=== PATIENT | male | born 1945 | race Caucasian/White ===

== ENCOUNTER 2023-07-20 03:48 | Inpatient (IN) | payer OTHER, SELFPAY ==
[2023-07-19 21:00] VITALS: BP 147/78; BMI 23.9
[2023-07-19 21:33] LABS: % Basophils 0.3 % (0-2); % Eosinophils 0.5 % (0-6); % Immature Granulocytes 0.4 % (0-0.5); % Monocytes 5.8 % (1.7-9.3); Absolute Eosinophils 0.1 10^3/uL (0-0.7); Absolute Lymphocytes 2.4 10^3/uL (1.2-3.4); Absolute Monocytes 0.6 10^3/uL (0.1-0.6); Absolute Neutrophils 7.8 10^3/uL (1.4-6.5); Hematocrit 40.8 % (39.0-52.0); Hemoglobin 14.5 g/dL (13.0-18.0); Mean Corp Hgb Conc. 35.5 g/dL (33.0-37.0); Mean Corpuscular Hgb 29.8 pg (27.0-31.0); Mean Corpuscular Volume 83.8 fL (80.0-94.0); Mean Platelet Volume 9.2 fL (7.4-10.4); Nucleated Red Blood Cells % 0 % (-); Platelet Count 240 10^3/uL (130-400); Red Blood Cell Count 4.87 10^6/uL (4.70-6.10); Red Cell Dist. Width 13.1 % (11.5-14.5); White Blood Cell Count 10.9 10^3/uL (4.8-10.8)
[2023-07-19 21:34] LABS: Urine Albumin Trace (Neg - Trace); Urine Bilirubin Negative (Negative); Urine Character Clear (Clear); Urine Color Yellow; Urine Glucose Negative (Negative); Urine Ketone 1+ (Negative); Urine Leukocyte Trace (Negative); Urine Nitrite Negative (Negative); Urine Occult Blood Negative (Negative); Urine Urobilinogen Negative (Neg - 1+)
[2023-07-19 21:41] LABS: Urine Mucus Few
[2023-07-19 21:42] LABS: Urine Red Blood Cell None Seen /HPF (0-2)
[2023-07-19 21:51] LABS: ALT (SGPT) 87 U/L (0-50); AST (SGOT) 35 U/L (17-59); Albumin 4.2 g/dl (3.5-5.0); Alkaline Phosphatase 96 U/L (38-126); Blood Urea Nitrogen 27 mg/dl (9-20); Calcium 9.4 mg/dl (8.4-10.2); Carbon Dioxide 25 mmol/L (22-30); Chloride 105 mmol/L (98-107); Estimated Creatinine Clearance 52 ml/min; Glucose 152 mg/dl (70-99); Lipase 207 U/L (23-300); Potassium 4.2 mmol/L (3.5-5.1); Sodium 136 mmol/L (135-145); Total Bilirubin 1.2 mg/dl (0.2-1.3); Total Protein 6.8 g/dl (6.3-8.2); eGFR > 60.00
--- NOTE | 2023-07-19 23:16 | ED.GENMED ---
History of Present Illness
General
Chief Complaint: Abdominal Pain
Source: patient and family
Time Seen by Provider: 07/19/23 23:03
Travel History
Have you had any contact with someone who has COVID-19?: No
Do you have any symptoms of coronavirus? Fever > 100 degrees, chills, cough, shortness of breath, sore throat, loss of taste or smell, muscle aches, or headache?: No
History of Present Illness
History of Present Illness:
This patient is a 77-year-old male who says he was feeling perfectly well until approximately 4:30 PM tonight when he developed upper abdominal pain associated with repeated episodes of nausea and nonbloody vomiting. He states that he last vomited
a few hours ago and he describes it as 'dry heaves' without the ground or blood. The pain is isolated to across the upper abdomen without exacerbating or relieving factors, no radiation, no associated chest pain, back pain, neck pain, headache,
dizziness. He denies urinary symptoms. He states that he had 3 formed nonbloody bowel movements today. He denies sick contacts or recent travel.
Past History
Past History
ED Past Medical History: Arrthythmia, Hypercholesterolemia and Psychiatric
ED Past Surgical History: Cardiac and Other (Hernia)
Social History
Tobacco: Non-smoker
Alcohol: Occasional
Drug: None
Personal: Other (Engaged)
Phy Exam
Physical Exam
Physical Exam:
GENERAL: Alert , in no apparent distress, smiling, well-appearing, laying in bed with fianc�
EYE: pupils equal and reactive
NECK: Supple, no significant adenopathy.
ENT: o/p clr, mm slightly dry
CARDIAC: Regular rate and rhythm .
LUNGS: Clear breath sounds bilaterally, no acute respiratory distress, no wheezes/rales/rhonchi
ABDOMEN: Soft, mild upper abdominal tenderness, no r/g, no cvat
NEUROLOGICAL: Alert and oriented, no focal neuro deficits
SKIN: Warm and dry, skin intact.
MUSCULOSKELETAL: No edema, well perfused.
PSYCH: Normal and appropriate interaction.
Course
Orders/Labs/Results
Orders:
Orders
07/19/23 21:06
EKG [Electrocardiogram (*1)] Urgent
Reason for Study: Abdominal Pain
EKG- Treatment ONCE
07/19/23 21:25
Complete Blood Count/With Diff Urgent
Comprehensive Metabolic Panel Urgent
Lipase Urgent
Urinalysis Reflex To Culture Urgent
Date Specimen was Collected: 07/19/23
Time Specimen was Collected: 21:05
Urine Microscopic Reflex Cult Urgent
07/19/23 23:16
0.9% Sodium Chloride 500 ml [Nss] 500 ml IV BOLUS
Morphine Sulfate 4 mg IV NOW STA
07/19/23 23:29
Ondansetron Injectable [Zofran] 4 mg .ROUTE .STK-MED ONE
07/19/23 23:30
Ondansetron Injectable [Zofran] 4 mg IV NOW STA
07/20/23 00:33
Morphine Sulfate 4 mg .ROUTE .STK-MED ONE
07/20/23 00:35
Morphine Sulfate 4 mg IV NOW STA
07/20/23 00:36
CT Abd/Pel (IV only)-DH only Urgent
Comment:
Reason For Exam: upper abd pain
07/20/23 01:22
Ketorolac [Toradol] 15 mg IV NOW STA
Abnormal Lab Results
07/19/23
21:25
WBC 10.9 H 10^3/uL
(4.8-10.8)
Absolute Neuts (auto) 7.8 H 10^3/uL
(1.4-6.5)
BUN 27 H mg/dl
(9-20)
Glucose 152 H mg/dl
(70-99)
ALT 87 H U/L
(0-50)
Urine Ketones 1+ A
(Negative)
Leukocyte Esterase Rfl Trace A
(Negative)
07/19/23 21:25
07/19/23 21:25
Vital Signs
Initial and Last Documented VS:
Initial Vital Signs
Temp Pulse Resp BP Pulse Ox
98.7 F 69 16 147/78 10
07/19/23 21:00 07/19/23 21:00 07/19/23 21:00 07/19/23 21:00 07/19/23 21:00
Last Documented Vital Signs
Temp Pulse Resp BP Pulse Ox
98.7 F 72 16 128/69 95
07/19/23 21:00 07/20/23 01:51 07/20/23 01:51 07/20/23 01:51 07/20/23 01:51
*Critical Care Note
Total Time (30-74mins, 75-104mins- exclusive of procedures): Not Applicable
Update Note
Update Note:
Patient presents to the Emergency Department with ____abdominal pain nausea vomiting
Number and Complexity of Problems Addressed at the Encounter
� Chronic conditions affecting care:
� Acute Exacerbation and/or Progression of Chronic Illness:
� Differential Diagnosis includes: But not limited to cholelithiasis, cholecystitis, pancreatitis, hepatitis, STEMI, etc. etc.
Amount and/or Complexity of Data to be Reviewed and Analyzed
� I performed an independent evaluation of and my interpretation is:
EKG: Read by me, normal sinus rhythm, no acute ischemia, PVCs noted
CT: 5 mm stone in the cystic duct with gallbladder inflammation concerning for acute cholecystitis, left ureteral dilation with decreased ureteral filling compared to the right, prostate enlargement with mild bladder wall
thickening noted, urology referral recommended for cystoscopy to assess for subtle bladder lesion causing left ureteral obstruction, no CT signs of pancreatitis, normal appendix, no free air
Xrays:
Laboratory Studies: Very minimal white blood cell count elevation, ketones noted in urine consistent with mild dehydration
Other:
� Review of other/old records reveals:
� Clinical information was obtained by an independent historian: Renata� who is bedside
� Prescriptions/Medications Considered but not given:
� Further testing considered but not performed:
Risk of Complications and/or Morbidity or Mortality of Patient Management
� Social determinants of health affecting care:
� Discussion with other providers (PCP, Hospitalists, Consultants, etc):
� Escalation of care including admission/observation vs risk of discharge considered:Pt feels better but still with pain. CT findings c/w pts continued upper abd pain/n/v. LFt's noted. Tashi dmit, iv abx,will need GI/surg c/s
in AM (not emergent, pt stable).
Pt specifically notified re:CT incidental findings and need for prompt urology f/u. He expresses understanding of this.
ED Attending Note
-
Portions of this chart may have been created with voice recognition software.� Occasional wrong word or��sound alike� substitutions may have occurred due to the inherent limitations of voice recognition software.
Discharge Plan
Departure
Patient Disposition: Admit
Date of Disposition: 07/20/23
Time of Disposition: 02:22
Presentation/result/management discussed w/ accepting MD/DO: Hospitalist
Condition: Good
Discharge Problem:
Acute cholecystitis
Referrals:
Pk Ramirez MD [Family Provider] -
Interventions
Interventions:
*Risk Screen - Suicide Last Done: 07/19/23 21:00
*General Assessment Last Done: 07/19/23 22:58
*Neglect/Abuse Screening Last Done: 07/19/23 21:00
ED- Fall Risk Assessment Last Done: 07/19/23 21:00
*ED COVID-19 Vaccine History Last Done: 07/19/23 22:58
BJ-Fkgpwe-Dhgrytzlvf Assessment Last Done: 07/19/23 23:30
Discharge Date and Time
Print Language: JAMAICAN
[2023-07-19] MEDS: NSS 500 IV (23:27)
[2023-07-19] MEDS: MORPHINE SULFATE 4 MG IV (23:27)
[2023-07-19] MEDS: ZOFRAN 4 MG IV (23:30)
[2023-07-20] MEDS: MORPHINE SULFATE 4 MG IV (00:35)
[2023-07-20] MEDS: TORADOL 15 MG IV (01:26)
[2023-07-20 01:47] VITALS: BP 128/69
[2023-07-20 01:51] VITALS: BP 128/69
[2023-07-20] MEDS: ZOSYN 50 IV (03:04)
[2023-07-20 03:40] VITALS: BP 121/70
--- NOTE | 2023-07-20 03:42 | HPS.HSE ---
Family Physician
-
Family Physician: Pk Ramirez
Chief Complaint
-
Abd Pain, N/V
History of Present Illness
Patient is a 77y M with PMH significant for dyslipidemia and anxiety who presents to ED complaining of abdominal pain and N/V. Patient states that his symptoms started suddenly today around 4:30 PM. He had severe, mid-abdominal pain accompanied
by N/V. He estimates that he had 'about 50' episodes of emesis - including multiple episodes of retching / 'dry heaves'. His symptoms persisted x several hours and he presented to the ED for further evaluation.
Patient notes that he has had less severe abdominal pain several times in the past 4-6 weeks. He notes 3-4 occasions - always in the middle of the night - when he would wake with abdominal pain that lasted for a few hours and then resolved. He did
not seek medial attention for these episodes. He had no associated N/V, fevers or other symptoms.
Medical History
Past Medical History
Past Medical History: Reports Other
Additional Past Medical History:
Anxiety / Depression
Dyslipidemia
Paroxysmal Atrial Fibrillation
Past Surgical History: Reports Other
Additional Past Surgical History:
PVI Ablation
Hernia Repair
Social History
Tobacco: Non-smoker
Alcohol: Occasional (Very Rare)
Drug: None
Family History
Family History: Not pertinent
Allergies / Home Medications
Allergies reflects when Allergies were last updated in [facility].
Home Medications with original date entered in [facility]
Allergy/Medication List:
Allergies
Allergy/AdvReac Type Severity Reaction Status Date / Time
Penicillins Allergy Unknown Verified 07/19/23 21:04
Home Medications
paroxetine HCl 10 mg tablet (Paxil) 10 mg PO DAILY 07/20/23
simvastatin 20 mg tablet 20 mg PO DAILY 07/20/23
Review of Systems
-
History Source: Patient
A 12 point ROS was completed and negative except as noted: Yes
Constitutional: Denies Fever or Chills
Respiratory: Denies Cough or Trouble Breathing
Cardiac: Denies Chest Pain or Palpitations
Abdomen/GI: Reports Abdominal Pain, Nausea and Vomiting; Denies Diarrhea, Constipated, Bloody Stools or Black Stools
: Denies Dysuria, Frequency, Flank Pain, Incontinence, Urgency or Bleeding
Musculoskeletal: Denies Joint Pain or Edema
Neurological: Denies Dizzy or Headache
Psych: Denies Depression or Anxiety
Physical Exam
Vital Signs
Vital Signs
Temp Pulse Resp BP Pulse Ox
98.7 F 72 16 128/69 95
07/19/23 21:00 07/20/23 01:51 07/20/23 01:51 07/20/23 01:51 07/20/23 01:51
Physical Exam
General: Other (77y M in no acute distress.)
HEENT: Moist mucous membranes and PERRLA
Respiratory: Clear; No Wheezes, Rales or Rhonchi
Cardiac: S1/S2 and Regular Rhythm (with ectopy); No Murmur
GI: Soft, Non Distended, Normal Bowel Sounds and Other (Mild epigastric tenderness. No rebound / guarding.)
Musculoskeletal: No Clubbing, No Cyanosis and No Edema
Neuro: AO x 3
Laboratory Results
-
07/19/23 21:25
07/19/23 21:25
Laboratory Results
Total Bilirubin 1.2 mg/dl (0.2-1.3) 07/19/23 21:25
AST 35 U/L (17-59) 07/19/23:
ALT 87 U/L (0-50) H 07/19/23 21:25
Alkaline Phosphatase 96 U/L (38-126) 07/19/23 21:
Lipase 207 U/L (23-300) 07/19/23 21:
Impression/Plan
-
A/P: Patient is a 77y M with PMH significant for dyslipidemia and anxiety who presents to ED complaining of abdominal pain and N/V.
Acute Calculous Cholecystitis
Cystic Duct Stone
- Admit for further evaluation and treatment.
- Supportive care including NPO, IVFs, pain control and antiemetics.
- IV abx with levofloxacin and metronidazole for now given PCN allergy (even though remote).
- Surgery evaluation for eventual cholecystectomy.
Left Ureteral Dilation
- CT reports also incidentally notes dilated L ureter without evident obstruction, stricture, etc.
- No urinary symptoms / complaints.
- Renal function / labs / lytes are normal.
- Will ask Urology to evaluate for additional recommendations.
Anxiety / Depression
- Stable. Continue Paxil.
DVT Prophylaxis: Lovenox
Code Status: Full
[2023-07-20] MEDS: LEVAQUIN 100 IV (06:18)
[2023-07-20] MEDS: FLAGYL 500 MG 100 IV ×3 (06:18→20:08)
[2023-07-20] MEDS: LR 1000 IV ×2 (07:43→21:59)
[2023-07-20 07:57] LABS: Hemoglobin 12.6 g/dL (13.0-18.0); Mean Corp Hgb Conc. 34.1 g/dL (33.0-37.0); Mean Corpuscular Hgb 29.6 pg (27.0-31.0); Mean Corpuscular Volume 87.1 fL (80.0-94.0); Mean Platelet Volume 9.6 fL (7.4-10.4); Platelet Count 181 10^3/uL (130-400); Red Blood Cell Count 4.25 10^6/uL (4.70-6.10); Red Cell Dist. Width 13.2 % (11.5-14.5); White Blood Cell Count 10.3 10^3/uL (4.8-10.8)
[2023-07-20 08:09] LABS: ALT (SGPT) 183 U/L (0-50); AST (SGOT) 205 U/L (17-59); Albumin 3.2 g/dl (3.5-5.0); Alkaline Phosphatase 76 U/L (38-126); Blood Urea Nitrogen 23 mg/dl (9-20); Calcium 8.7 mg/dl (8.4-10.2); Carbon Dioxide 28 mmol/L (22-30); Chloride 106 mmol/L (98-107); Direct Bilirubin 0.2 mg/dl (0.0-0.4); Estimated Creatinine Clearance 63 ml/min; Glucose 141 mg/dl (70-99); Potassium 4.3 mmol/L (3.5-5.1); Sodium 138 mmol/L (135-145); Total Bilirubin 2.1 mg/dl (0.2-1.3); Total Protein 5.5 g/dl (6.3-8.2); eGFR > 60.00
--- NOTE | 2023-07-20 09:18 | W.PN.HOSP.TC ---
Today's Communication/Plan
-
IV AB
Surgical eval
Assessment / Plan
Assessment / Plan
77-year-old male with history of epigastric discomfort a few times in the past few months comes in because of more pain and nausea and vomiting
Examination pain-free now
Cardiovascular system S1-S2 appreciated
Chest clear to auscultation
Abdomen soft and nontender
No pedal edema
CT-contracted gallbladder with stones 0.5 cm cystic duct. Cannot exclude gallbladder wall thickening pronation. No CBD dilatation mentioned. Small nonobstructing left renal calculi. Mild left ureteral dilatation
EKG sinus rhythm with PVCs right bundle branch block
#Acute Calculous Cholecystitis
Cystic Duct Stone
- Supportive care including NPO, IVFs, pain control and antiemetics.
- IV abx with levofloxacin and metronidazole for now given PCN allergy (even though remote).
- Surgery evaluation for eventual cholecystectomy.
#Left Ureteral Dilation
- CT reports also incidentally notes dilated L ureter without evident obstruction, stricture
- No urinary symptoms / complaints.
- Renal function / labs / electrolytes are normal.
- Urinalysis not consistent with UTI
- Will ask Urology to evaluate for additional recommendations.
# History of atrial fibrillation with history of ablation in the past not on any anticoagulation follows up with Dr. Gavin Martin at [place]
#Anxiety / Depression
- Stable. Continue Paxil.
# Hyperlipidemia-hold simvastatin given elevated LFTs
#DVT Prophylaxis: Lovenox
#Code Status: Full
Anticipated Discharge: 24 - 48 hours
Subjective/Interval History
-
Date of Service: July 20, 2023
Objective Data
-
Labs:
Laboratory Results
07/19/23 07/20/23
21:25 07:42
WBC 10.9 H 10.3
Hgb 14.5 12.6 L
Hct 40.8 37.0 L
Plt Count 240 181 D
Sodium 136 138
Potassium 4.2 4.3
Chloride 105 106
Carbon Dioxide 25 28
BUN 27 H 23 H
Creatinine 1.1 0.9
Glucose 152 H 141 H
Calcium 9.4 8.7
Total Bilirubin 1.2 2.1 H D
AST 35 205 H
ALT 87 H 183 H
Alkaline Phosphatase 96 76
Vital Signs:
Vital Signs
Temp Pulse Resp BP Pulse Ox
98.7 F 60 16 121/70 98
07/19/23 21:00 07/20/23 03:40 07/20/23 03:40 07/20/23 03:40 07/20/23 03:42
[2023-07-20] MEDS: PROTONIX IV 40 MG IV (09:20)
[2023-07-20] MEDS: PAXIL 10 MG PO (09:20)
[2023-07-20] MEDS: NSS (PRESERVATIVE FREE) 10 ML IV (09:21)
--- NOTE | 2023-07-20 12:16 | CON.GS ---
Consultation
-
Date/Time Consultation Requested: 07/19/22 0353
Requesting Provider: Ridge
Reason for Consultation: Acute Cholecystitis
Medical History
-
Chief Complaint: Abdominal pain
History of Present Illness:
This is a 77 yo male with a history of PAF s/p ablation (not on AC), HLD and right inguinal hernia repair who presented overnight with upper abdominal pain starting in the epigastric area around the right side into his back with nausea and multiple
episodes of vomiting. He notes this is his 3rd episode like this usually an hour or 2 after eating but as it was much worse than prior episodes, he presented for evaluation. He is currently pain free and without tenderness. He denies active nausea.
Past Medical History
Past Medical History: Arrhythmias (PAF), Hypercholesterolemia and Psychiatric (anxiety/depression)
Past Surgical History: Cardiac (PVI ablation) and Hernia Repair (right inguinal 2020 at [place])
Social History
Tobacco: Non-Smoker
Alcohol: None
Family History
Family History: Reviewed & Not Pertinent
Allergies / Home Medications
Allergy/AdvReac Type Severity Reaction Status Date / Time
Penicillins Allergy Unknown Verified 07/19/23 21:04
�Medication �Instructions �Recorded �Confirmed �Type
paroxetine HCl 10 mg tablet (Paxil) 10 mg PO DAILY 07/20/23 07/20/23 History
simvastatin 20 mg tablet 20 mg PO DAILY 07/20/23 07/20/23 History
Review of Systems
-
History Source: Patient
All other systems: Negative unless noted
A 10 point review of systems was completed, and was negative except as per HPI.
Physical Exam
Vital Signs
Temp Pulse Resp BP Pulse Ox
98.7 F 60 16 121/70 98
07/19/23 21:00 07/20/23 03:40 07/20/23 03:40 07/20/23 03:40 07/20/23 03:42
07/19/23 07/20/2307/20/24
06:59 06:59 06:59
Actual Weight 68.039 kg
Body Mass Index (BMI) 23.9
Lab Results
07/20/23 07:42
07/20/23 07:42
WBC 10.3 10^3/uL (4.8-10.8) 07/20/23 07:42
Hgb 12.6 g/dL (13.0-18.0) L 07/20/23 07:42
Hct 37.0 % (39.0-52.0) L 07/20/23 07:42
Plt Count 181 10^3/uL (130-400) D 07/20/23 07:42
Abs Immat Gran (auto) 0.0 10^3/uL (0-0.05) 07/19/23 21:25
Neutrophils % 71.0 % (42.2-75.2) 07/19/23 21:25
Physical Exam
General: Well Developed, Well Nourished and No Apparent Distress
HEENT: Normocephalic and Moist Mucous Membranes
Respiratory: Non Labored Respirations
GI: Soft, Non Tender and Non Distended
Skin: Warm
Neuro: Awake, Alert and AO x 3
Psych: Calm
Data Reviewed
-
CT Scan: Image Personally Visualized and interpreted, Report Reviewed by me, Discussed with Physician, Discussed with Nurse, Discussed with Patient and Discussed with Family
Labs: Labs Reviewed by me, Discussed with Physician, Discussed with Nurse, Discussed with Patient and Discussed with Family
Assessment / Plan
-
77 yo male PAF s/p ablation (not on AC), HLD and right inguinal hernia repair who presented overnight with epigastric abdominal pain across the front of his abdomen with nausea and intractable vomiting. He has had pain like this before but this
episode was worse. CT imaging reviewed, the gallbladder is not distended but there is a stone noted in the cystic duct. ?wall thickening and inflammation. Left hydroureter noted. AFVSS. Currently pain free without nausea. LFT's rising, no
leukocytosis. Suspect biliary colic vs acute on chronic cholecystitis.
--Trend LFT's, if bilirubin continue to rise will check MRCP
--Empiric abx
--Tentative cholecystectomy on Saturday pending patient course
--Ok for clear liquids
--Urology consult pending
--Medical management as per primary team
[2023-07-20 12:17] VITALS: BP 121/59
[2023-07-20 12:18] VITALS: BMI 24.2
--- NOTE | 2023-07-20 14:48 | W.PN.URO.CBU ---
Today's Communication / Plan
-
no gu intrvention
Assessment / Plan
-
incidetlelft hydto no obstuction ans asx bph will observe at risk fo retentionif genrla surgery will eventaually follow as otptint
Diagnosis
-
Date of Service: July 20, 2023
-
Patient Diagnosis:asx incidenta;l finding left hydrouretral dilation with no tcc no stones prompt uptake excretuion iv contrast bph
Post Op Day:
Subjective
-
asx
Objective
-
Vital Signs
Temp Pulse Resp BP Pulse Ox
97.8 F 51 16 121/59 98
07/20/23 12:17 07/20/23 12:17 07/20/23 12:17 07/20/23 12:17 07/20/23 12:17
Laboratory Results
07/20/23 07:42
07/20/23 07:42
Review of Systems
-
: No Symptoms
Physical Exam
-
General - well developed, well nourished, no acute distress
Chest - clear bilaterally
Abdomen - soft, non-tender, positive bowel sounds, no CVAT, no incisional pain or distention
Genitalia - normal
Rectal - normal
Skin - warm & dry with no rash
Neuro - AOx3, no motor deficits
Extremities - no clubbing, no cyanosis, no edema
Incision - clean, dry
Dressing - clean, dry, intact
Care Review
Data Reviewed
Discussed with: Hospitalist and Family
CT Scan: Image Pers Reviewed
[2023-07-20 15:10] VITALS: BP 118/61
[2023-07-20 16:03] VITALS: BMI 24.2
[2023-07-20 16:19] VITALS: BMI 24.2
[2023-07-20] MEDS: LOVENOX 40 MG SC (17:19)
[2023-07-20 20:00] VITALS: BMI 24.2
[2023-07-20] MEDS: LR IV (21:59)
[2023-07-20 23:31] VITALS: BP 117/58
[2023-07-21] MEDS: LEVAQUIN 100 IV (03:20)
[2023-07-21] MEDS: FLAGYL 500 MG 100 IV ×3 (04:30→20:42)
[2023-07-21 05:17] LABS: Hematocrit 39.2 % (39.0-52.0); Mean Corp Hgb Conc. 33.2 g/dL (33.0-37.0); Mean Corpuscular Volume 90.5 fL (80.0-94.0); Mean Platelet Volume 9.9 fL (7.4-10.4); Platelet Count 199 10^3/uL (130-400); Red Blood Cell Count 4.33 10^6/uL (4.70-6.10); Red Cell Dist. Width 13.3 % (11.5-14.5)
[2023-07-21 05:47] LABS: ALT (SGPT) 130 U/L (0-50); AST (SGOT) 59 U/L (17-59); Albumin 3.1 g/dl (3.5-5.0); Alkaline Phosphatase 75 U/L (38-126); Blood Urea Nitrogen 17 mg/dl (9-20); Calcium 8.8 mg/dl (8.4-10.2); Carbon Dioxide 26 mmol/L (22-30); Chloride 106 mmol/L (98-107); Estimated Creatinine Clearance 62 ml/min; Glucose 119 mg/dl (70-99); Potassium 4.4 mmol/L (3.5-5.1); Sodium 137 mmol/L (135-145); Total Bilirubin 2.2 mg/dl (0.2-1.3); Total Protein 5.5 g/dl (6.3-8.2); eGFR > 60.00
[2023-07-21] MEDS: PROTONIX IV 40 MG IV (07:31)
[2023-07-21] MEDS: PAXIL 10 MG PO (07:32)
[2023-07-21] MEDS: NSS (PRESERVATIVE FREE) 10 ML IV (07:32)
[2023-07-21 07:40] VITALS: BP 103/58
[2023-07-21] MEDS: ANTIVERT 25 MG PO ×3 (08:15→23:14)
--- NOTE | 2023-07-21 09:08 | W.PN.HOSP.TC ---
Today's Communication/Plan
-
Antivert
PT for vestibular therapy
MRI per surgery
Start clears after MRI
N.p.o. after midnight tonight for cholecystectomy tomorrow
Assessment / Plan
Assessment / Plan
77-year-old male with history of epigastric discomfort a few times in the past few months comes in because of more pain and nausea and vomiting
Examination pain-free now
Cardiovascular system S1-S2 appreciated
Chest clear to auscultation
Abdomen soft and nontender
No pedal edema
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
Exam is otherwise nonfocal
CT-contracted gallbladder with stones 0.5 cm cystic duct. Cannot exclude gallbladder wall thickening pronation. No CBD dilatation mentioned. Small nonobstructing left renal calculi. Mild left ureteral dilatation
EKG sinus rhythm with PVCs right bundle branch block
#Acute Calculous Cholecystitis
Cystic Duct Stone
- Supportive care including clears, IVFs, pain control and antiemetics.
- MRI/MRCP per surgery
- IV abx with levofloxacin and metronidazole for now given PCN allergy (even though remote).
- Cholecystectomy planned for 07/22/2023
# Acute on chronic vertigo/dizziness.
-Patient is undergoing-balance training twice a week as outpatient
-Order Antivert and physical therapy for vestibular therapy
#Left Ureteral Dilation
- CT reports also incidentally notes dilated L ureter without evident obstruction, stricture
- No urinary symptoms / complaints.
- Renal function / labs / electrolytes are normal.
- Urinalysis not consistent with UTI
- Urology is not recommending any further interventions
# History of atrial fibrillation with history of ablation in the past not on any anticoagulation follows up with Dr. Gavin Martin at [place]
#Anxiety / Depression
- Stable. Continue Paxil.
# Hyperlipidemia-hold simvastatin given elevated LFTs
#DVT Prophylaxis: Lovenox
#Code Status: Full
Discussed with nursing
Anticipated Discharge: 24 - 48 hours
Subjective/Interval History
-
Date of Service: July 21, 2023
Objective Data
-
Labs:
Laboratory Results
07/21/23
04:22
WBC 9.0
Hgb 13.0
Hct 39.2
Plt Count 199
Sodium 137
Potassium 4.4
Chloride 106
Carbon Dioxide 26
BUN 17
Creatinine 0.9
Glucose 119 H
Calcium 8.8
Total Bilirubin 2.2 H
AST 59
ALT 130 H
Alkaline Phosphatase 75
Vital Signs:
Vital Signs
Temp Pulse Resp BP Pulse Ox
98.1 F 57 16 103/58 95
07/21/23 07:40 07/21/23 07:40 07/21/23 07:40 07/21/23 07:40 07/21/23 07:40
I&O
07/20/23 07/21/23 07/22/23
06:59 06:59 06:59
Intake Total 1859
Balance 1859
--- NOTE | 2023-07-21 09:29 | W.PN.GS2 ---
Addendum entered and electronically signed by Rudy Molina MD 07/21/23 14:14:
I saw and examined the patient.
The CLOSING COORDINATOR's note was reviewed and I agree with the note.
Comment:
Seen with CLOSING COORDINATOR this am.
No pain today.
Vitals ok. WBC ok. TB 2.2.
Abdomen nontender.
Await MRCP.
Possible lap roderick tomorrow.
Original Note:
Today's Communication / Plan
-
MRCP
Assessment / Plan
-
77 yo M who presented in with mid abdominal pain, n/v, barely elevated WBC and CT with contracted/?chronically inflamed gallbladder with cystic duct stone. Bilirubin remains elevated. No further pain or n/v. AFVSS
--Check MRCP to evaluate for choledocholithiasis
--Clear liquids as tolerated
--Tentative lap roderick tomorrow pending MRCP findings
--Medical management as per primar team
Subjective Data
-
Date of Service: July 21, 2023
Patient seen and examined at bedside. Denies pain. Denies n/v.
Objective Data
-
Intake and Output
07/20/23 07/21/23 07/22/23
06:59 06:59 06:59
Intake Total 1859
Balance 1859
Intake:
Oral fluids 360 / 360
IV fluids (Total) 1200 / 1200
IV piggybacks 300 / 300
Other:
How many times incontinent 2
MODERATE amount urine
Vital Signs
Temp Pulse Resp BP Pulse Ox
98.1 F 57 16 103/58 95
07/21/23 07:40 07/21/23 07:40 07/21/23 07:40 07/21/23 07:40 07/21/23 07:40
Lab Results
07/21/23 04:22
07/21/23 04:22
Calcium 8.8 mg/dl (8.4-10.2) 07/21/23 04:22
Total Bilirubin 2.2 mg/dl (0.2-1.3) H 07/21/23 04:22
Direct Bilirubin 0.2 mg/dl (0.0-0.4) 07/20/23 07:42
AST 59 U/L (17-59) 07/21/23 04:22
ALT 130 U/L (0-50) H 07/21/23 04:22
Alkaline Phosphatase 75 U/L (38-126) 07/21/23 04:22
Total Protein 5.5 g/dl (6.3-8.2) L 07/21/23 04:22
Albumin 3.1 g/dl (3.5-5.0) L 07/21/23 04:22
Physical Exam
-
NAD
ABD soft, nt, nd
--- NOTE | 2023-07-21 09:46 | W.PN.URO.CBU ---
Today's Communication / Plan
-
no gu intervention
Assessment / Plan
-
incidetlelft hydto no obstuction ans asx bph will observe at risk fo retentionif genrla surgery will eventaually follow as otptint
Diagnosis
-
Date of Service: July 21, 2023
-
Patient Diagnosis:
Post Op Day:
Patient Diagnosis:asx incidenta;l finding left hydrouretral dilation with no tcc no stones prompt uptake excretuion iv contrast bph
Post Op Day:
Subjective
-
no gu complaints still ruq discomfort
Objective
-
Vital Signs
Temp Pulse Resp BP Pulse Ox
98.1 F 57 16 103/58 95
07/21/23 07:40 07/21/23 07:40 07/21/23 07:40 07/21/23 07:40 07/21/23 07:40
Intake and Output
07/20/23 07/21/23 07/22/23
06:59 06:59 06:59
Intake Total 1859
Balance 1859
Intake:
Oral fluids 360 / 360
IV fluids (Total) 1200 / 1200
IV piggybacks 300 / 300
Other:
How many times incontinent 2
MODERATE amount urine
Laboratory Results
07/21/23 04:22
07/21/23 04:22
Review of Systems
-
: No Symptoms
Physical Exam
-
General - well developed, well nourished, no acute distress
Chest - clear bilaterally
Abdomen - soft, non-tender, positive bowel sounds, no CVAT, no incisional pain or distention
Genitalia - normal
Rectal - normal
Skin - warm & dry with no rash
Neuro - AOx3, no motor deficits
Extremities - no clubbing, no cyanosis, no edema
Incision - clean, dry
Dressing - clean, dry, intact
Care Review
Data Reviewed
Discussed with: Hospitalist
--- NOTE | 2023-07-21 11:09 | CM ---
CM following re: discharge planning.
Reviewed pt's chart, met with pt.
Pt is a 77 year old male, admitted with primary dx of Abdominal pain. Per MD doyleative lisa vaughn tomorrow.
Pt reports he lives with zulema' in a 2SH townhouse, 3 steps to enter, has 2 supportive children. 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 No DME, VN or SNF history.
PCP: Pk Ramirez
Pharmacy: [facility]
D/C plan: home with anticipated no needs. Zulema' to transport at discharge
CM will follow with discharge plan updates as needed.
[2023-07-21] MEDS: LR 1000 IV ×2 (11:28→20:47)
[2023-07-21 13:50] VITALS: BP 112/58; PULSE 66
[2023-07-21 15:00] VITALS: BP 119/66
[2023-07-21] MEDS: LOVENOX 40 MG SC (17:21)
[2023-07-21 23:00] VITALS: BP 129/70
[2023-07-22] VITALS (13 sets, daily range): BP systolic 102–137; BP diastolic 55–76
[2023-07-22] MEDS: FLAGYL 500 MG 100 IV ×2 (03:25→20:14)
[2023-07-22] MEDS: LEVAQUIN 100 IV (04:19)
[2023-07-22 05:10] LABS: Hematocrit 35.9 % (39.0-52.0); Hemoglobin 12.5 g/dL (13.0-18.0); Mean Corp Hgb Conc. 34.8 g/dL (33.0-37.0); Mean Corpuscular Volume 86.1 fL (80.0-94.0); Mean Platelet Volume 9.7 fL (7.4-10.4); Platelet Count 189 10^3/uL (130-400); Red Blood Cell Count 4.17 10^6/uL (4.70-6.10); Red Cell Dist. Width 13.3 % (11.5-14.5); White Blood Cell Count 6.8 10^3/uL (4.8-10.8)
[2023-07-22 05:29] LABS: ALT (SGPT) 91 U/L (0-50); AST (SGOT) 30 U/L (17-59); Albumin 2.9 g/dl (3.5-5.0); Alkaline Phosphatase 73 U/L (38-126); Blood Urea Nitrogen 14 mg/dl (9-20); Calcium 8.7 mg/dl (8.4-10.2); Carbon Dioxide 25 mmol/L (22-30); Chloride 108 mmol/L (98-107); Direct Bilirubin 0.1 mg/dl (0.0-0.4); Estimated Creatinine Clearance 70 ml/min; Glucose 122 mg/dl (70-99); Potassium 3.8 mmol/L (3.5-5.1); Sodium 138 mmol/L (135-145); Total Bilirubin 1.8 mg/dl (0.2-1.3); Total Protein 5.2 g/dl (6.3-8.2); eGFR > 60.00
[2023-07-22] MEDS: PROTONIX IV 40 MG IV (08:05)
[2023-07-22] MEDS: PAXIL 10 MG PO (08:06)
[2023-07-22] MEDS: NSS (PRESERVATIVE FREE) 10 ML IV (08:06)
[2023-07-22] MEDS: ANTIVERT 25 MG PO ×2 (08:06→16:43)
--- NOTE | 2023-07-22 09:03 | W.PN.GS2 ---
Today's Communication / Plan
-
OR today. Timing pending OR schedule availability.
Assessment / Plan
-
77 yo M who presented in with mid abdominal pain, n/v, barely elevated WBC and CT with contracted/?chronically inflamed gallbladder with cystic duct stone. Bilirubin remains elevated. No further pain or n/v. AFVSS
-- Bilirubin has come down, will cancel MRCP.
-- N.p.o. for OR today, lap roderick with grams. IV fluids, IV antibiotics.
Risks/Benefits/Alternatives, expected postoperative course and possible complications (bleeding, infection, injury to surrounding structures, acute/chronic pain) discussed at length. Patient wishes to proceed with surgery. All questions answered.
Consent obtained.
I spent roughly 60 minutes in total for the care of this patient today including direct patient care and counseling, reviewing labs, imaging, coordination of care, as well as documentation.
Time Spent
Total Time Spent with Patient (in minutes): 20
Subjective Data
-
Date of Service: July 22, 2023
Interval Events:
No acute events overnight. Slept well. Pain Controlled. Denies Nausea/Vomiting, +bowel function.
Objective Data
-
Intake and Output
07/21/23 07/22/23 07/23/23
06:59 06:59 06:59
Intake Total 1860 / 1860 3300 / 3300
Balance 1860 / 1860 3300 / 3300
Intake:
Oral fluids 360 / 360 1200 / 1200
IV fluids (Total) 1200 / 1200 1800 / 1800
IV piggybacks 300 / 300 300 / 300
Other:
Number of approximated MODERATE 3
amounts of urine
Number of approximated LARGE 2
amounts of urine
How many times incontinent 2
MODERATE amount urine
Vital Signs
Temp Pulse Resp BP Pulse Ox
98.1 F 66 16 129/70 95
07/21/23 23:00 07/21/23 23:00 07/21/23 23:00 07/21/23 23:00 07/21/23 23:00
Lab Results
07/22/23 04:22
07/22/23 04:22
Calcium 8.7 mg/dl (8.4-10.2) 07/22/23 04:22
Total Bilirubin 1.8 mg/dl (0.2-1.3) H 07/22/23 04:22
Direct Bilirubin 0.1 mg/dl (0.0-0.4) 07/22/23 04:22
AST 30 U/L (17-59) 07/22/23 04:22
ALT 91 U/L (0-50) H 07/22/23 04:22
Alkaline Phosphatase 73 U/L (38-126) 07/22/23 04:22
Total Protein 5.2 g/dl (6.3-8.2) L 07/22/23 04:22
Albumin 2.9 g/dl (3.5-5.0) L 07/22/23 04:22
Physical Exam
-
GENERAL/NEURO: Awake, Alert, no distress
CHEST: Unlabored breathing on RA
ABDOMEN: Soft, mild right upper quadrant tenderness, nondistended.
--- NOTE | 2023-07-22 09:57 | W.PN.HOSP.TC ---
Today's Communication/Plan
-
Lap roderick today
Assessment / Plan
Assessment / Plan
77-year-old male with history of epigastric discomfort a few times in the past few months comes in because of more pain and nausea and vomiting
Examination pain-free now
Cardiovascular system S1-S2 appreciated
Chest clear to auscultation
Abdomen soft and nontender
No pedal edema
CT-contracted gallbladder with stones 0.5 cm cystic duct. Cannot exclude gallbladder wall thickening pronation. No CBD dilatation mentioned. Small nonobstructing left renal calculi. Mild left ureteral dilatation
EKG sinus rhythm with PVCs right bundle branch block
#Acute Calculous Cholecystitis
Cystic Duct Stone
- Supportive care including clears, IVFs, pain control and antiemetics.
-NO MRI as labs better
- IV abx with levofloxacin and metronidazole for now given PCN allergy (even though remote).
- Cholecystectomy planned for 07/22/2023
# Acute on chronic vertigo/dizziness.
-Patient is undergoing-balance training twice a week as outpatient
-Ordered Antivert and physical therapy for vestibular therapy
#Left Ureteral Dilation
- CT reports also incidentally notes dilated L ureter without evident obstruction, stricture
- No urinary symptoms / complaints.
- Renal function / labs / electrolytes are normal.
- Urinalysis not consistent with UTI
- Urology is not recommending any further interventions
- Defer if needs a Mcpherson during procedure to surgeon
# History of atrial fibrillation with history of ablation in the past not on any anticoagulation follows up with Dr. Gavin Martin at [place]
#Anxiety / Depression
- Stable. Continue Paxil.
# Hyperlipidemia-hold simvastatin given elevated LFTs
#DVT Prophylaxis: Lovenox
#Code Status: Full
Discussed with nursing
Anticipated Discharge: Within 24 hours
Subjective/Interval History
-
Date of Service: July 22, 2023
Objective Data
-
Labs:
Laboratory Results
07/22/23
04:22
WBC 6.8
Hgb 12.5 L
Hct 35.9 L
Plt Count 189
Sodium 138
Potassium 3.8
Chloride 108 H
Carbon Dioxide 25
BUN 14
Creatinine 0.8
Glucose 122 H
Calcium 8.7
Total Bilirubin 1.8 H
AST 30
ALT 91 H
Alkaline Phosphatase 73
Vital Signs:
Vital Signs
Temp Pulse Resp BP Pulse Ox
98.2 F 62 16 112/75 96
07/22/23 08:24 07/22/23 08:24 07/22/23 08:24 07/22/23 08:24 07/22/23 08:24
I&O
07/21/23 07/22/23 07/23/23
06:59 06:59 06:59
Intake Total 1859 3300 / 3300
Balance 1859 3300 / 3300
[2023-07-22 12:51] LABS: Glycohemoglobin (HgbA1c) 7.1 % (4.0-5.6)
--- NOTE | 2023-07-22 13:43 | W.SUR.PREOP ---
Pre-Operative Surgical Note
-
I have examined this patient prior to the performance of the scheduled procedure.
The patient's condition is unchanged from the time of the current History and
Physical and the patient is able to undergo the scheduled procedure.
--- NOTE | 2023-07-22 13:46 | W.IMMPOSTOP ---
Surgical Immed Post Op Note
-
Primary Surgeon: Jayme Mckinnon MD
Assisting Surgeon: None
Pre-op Diagnosis: Acute cholecystitis
Post-op Diagnosis: Same
Procedure Performed: Laparoscopic cholecystectomy with cholangiogram
Anesthesia Type: General
Specimen / Cultures: Gallbladder and contents
Estimated Blood Loss: 21 cc
Complications: None
Operative Findings: An 18 Sinhala coud� catheter was placed at the start of the case to the behest of urology. acutely inflamed gallbladder with a fair amount of the fat in the cystic triangle. A critical view of safety was obtained prior to a
cholangiogram which demonstrated no distal filling defects and normal biliary anatomy. Cystic artery as well as a posterior cystic artery were ligated with 5 mm clips and divided. The cystic duct was ligated with a 5 mm clip followed by a 0 PDS
Endoloop as it was a fairly dilated. There was some spillage of bile but no stones.
POST OP PLAN:
Imaging: None
Labs: Routine AM
Diet: Advance to Regular as tolerated
Analgesia: Tylenol 650mg q6 Priti, Thelma 5mg q6 PRN, Dilaudid 0.5mg q2h PRN
Neuro/vascular checks: q4h
AC/AP: Hold Therapeutic AC, Ok for DVT PPx
Activity: Ad Kaitlin
Wound/Incisions/Drains: Routine, anticipate Mcpherson out tomorrow.
Abx: None continue IV antibiotics or p.o. equivalent x 4 days
Dispo: RNF, anticipate discharge home tomorrow.
--- NOTE | 2023-07-22 13:48 | W.PN.UPDATE ---
Update Note
Progress Note Update
s/p laparoscopic cholecystectomy + cholangiogram (Dr. Mckinnon).
Noted to have large prostate gland pre-operatively - seen by Dr. Domingo.
Likelihood of post-operative urinary retention d/w patient at initial evaluation.
Recommendation:
- Maintain Mcpherson catheter today post-op
- D/c Mcpherson catheter @0600 in AM (ordered)
D/w Dr. Mckinnon
--- NOTE | 2023-07-22 13:51 | OR.RPT ---
Operative Report
Operative Report
Patient Name: Bari Medrano
: 1945
Date of Operation: 07/22/2023
Preoperative Diagnosis: Acute cholecystitis
Postoperative Diagnosis: Same
Procedure(s):
Laparoscopic Cholecystectomy with Cholangiogram
Surgeon(s):
Dr. Mckinnon
Jinriksha Driver(s):
None
Anesthesia: General
Estimated Blood Loss: 23 cc
Urine Output: None
Drains/Lines/Implants: None
Specimens:
1. Gallbladder and contents
HPI/Surgical Indications:
This is a 77-year-old male who presents with 2 days of right upper quadrant abdominal pain. Exam, labs and imaging are consistent with acute cholecystitis. Risks/Benefits/Alternatives were discussed at length, and the patient agreed to proceed with
surgery.
Operative Findings: An 18 Wolof coud� catheter was placed at the start of the case to the behest of urology. acutely inflamed gallbladder with a fair amount of the fat in the cystic triangle. A critical view of safety was obtained prior to a
cholangiogram which demonstrated no distal filling defects and normal biliary anatomy. Cystic artery as well as a posterior cystic artery were ligated with 5 mm clips and divided. The cystic duct was ligated with a 5 mm clip followed by a 0 PDS
Endoloop as it was a fairly dilated. There was some spillage of bile but no stones.
Procedure Description:
The patient was brought to the Operating Room and placed in the supine position with one arm tucked. Following uneventful induction of general endotracheal anesthesia, an orogastric tube was placed as well as an 18 Wolof coud� catheter which
passed easily. The abdomen was prepped and draped in the usual sterile fashion. A timeout was performed confirming the procedure, consent, and that IV antibiotics were infused and sequential compression devices were confirmed to be on. The abdomen
was entered using an infraumbilical open Ned technique with a 12 mm trochar. Pneumoperitoneum to 15 mmHg pressure was obtained without difficulty and we confirmed that no injury had occurred during our entry. The patient was positioned in reverse
Trendelenberg and rotated with the right side up slightly. Three (3) 5mm trocars were then placed along the right subcostal margin. A locking grasping forceps was placed on the fundus of the gallbladder where it was then retracted cephalad and to
the right. Using appropriate grasping instruments, the peritoneum overlying the triangle of Calot was incised and extended superiorly on both the anterior and posterior gallbladder ni. The infundibulum was dissected off the cystic plate. The
cystic triangle was dissected until a critical view of safety was achieved. The cystic artery was medialized, dissected and controlled with 2 proximal clips and 1 distal. The cystic duct/gallbladder junction in turn was identified, dissected
circumferentially and a clip was placed. A ductotomy was made and a cholangiocatheter on an Bhatia clamp was inserted into the cystic duct. A C-arm was draped and brought into the field. An intra-operative cholangiogram was performed and was noted to
have:
No filling defects in the biliary tree
No significant biliary dilation
Brisk flow of contrast into the duodenum
Normal biliary anatomy
The catheter was then removed and the cystic duct was controlled with a 5 mm titanium clip followed by a 0 PDS Endoloop as the duct was fairly dilated. After ensuring both the artery and duct were divided, the gallbladder was freed from the liver
using electrocautery. There was some spillage of bile, but no spillage of stones. The gallbladder bed was inspected and excellent hemostasis was obtained. The gallbladder was extracted through the 12 mm trocar site using an endocatch bag. The
abdomen was again irrigated and excellent hemostasis was assured. A small piece of Surgicel was left on the gallbladder fossa. All remaining trocars were then removed and the pneumoperitoneum was evacuated. The 12 mm trocar site was closed using
0 PDS suture. All trocar sites were closed at the skin level using 4-0 Monocryl followed by Dermabond. Overall, the patient tolerated the procedure well and was taken to the Recovery Room postoperatively in stable condition.
I was the attending physician and performed the procedure with no assistance. I was present for all portions of the case
Jayme Mckinnon MD
[2023-07-22] MEDS: LR 1000 IV (14:30)
[2023-07-22] MEDS: SUBLIMAZE 25 MCG IV ×2 (14:33→14:50)
--- NOTE | 2023-07-22 15:05 | CM ---
Nadira Perez on this date. Anticipate no needs at discharge. Will follow medical progression should needs change.
--- NOTE | 2023-07-22 15:14 | SUR.PHASEI ---
c/o about moralez cath, penis pain -urge to void. vss. medicated x2 with fentanyl - patient sleeps. TT Dr Mckinnon explained moralez will stay in place overnight, Dr Stokes in pacu - also spoke with patient and explains reason for moralez and follow up.
patient sleeps if undisturbed, Report to [address] [place] [address] and transported by bed
--- NOTE | 2023-07-22 15:41 | PTCARENOTE ---
Received patient from PACU around 1530 via bed in stable condition. 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 Urinary catheter in place draining clear yellow urine. Call junior in place.
[2023-07-22] MEDS: FLAGYL 500 MG IV (16:34)
--- NOTE | 2023-07-22 16:39 | W.PN.URO.CBU ---
Today's Communication / Plan
-
fioley until am
Assessment / Plan
-
incidetlelft hydto no obstuction ans asx bph routine post o moralez daing clwear urine will remove in am for voiding trial
Diagnosis
-
Date of Service: July 22, 2023
-
Patient Diagnosis:
Post Op Day:
Patient Diagnosis:
Post Op Day:
Patient Diagnosis:asx incidenta;l finding left hydrouretral dilation with no tcc no stones prompt uptake excretuion iv contrast bph
Post Op Day:0 removal gall bladder laparocopica;;y with p[ost op moralez
Subjective
-
hates moralez o/ wiseasx
Objective
-
Vital Signs
Temp Pulse Resp BP Pulse Ox
97.9 F 65 16 129/69 98
07/22/23 15:40 07/22/23 15:40 07/22/23 15:40 07/22/23 15:40 07/22/23 15:40
Intake and Output
07/21/23 07/22/23 07/23/23
06:59 06:59 06:59
Intake Total 0 / 0 3300 / 3300 200 / 200
Output Total 300 / 300
Balance 1860 / 1860 3300 / 3300 -100 / -100
Intake:
Oral fluids 360 / 360 1200 / 1200
IV fluids (Total) 1200 / 1200 1800 / 1800 200 / 200
normosol 200 / 200
IV piggybacks 300 / 300 300 / 300
Output:
Urine, Moralez 300 / 300
Other:
Number of approximated MODERATE 3
amounts of urine
Number of approximated LARGE 2
amounts of urine
How many times incontinent 2
MODERATE amount urine
Laboratory Results
07/22/23 04:22
07/22/23 04:22
Review of Systems
-
: Difficulty Voiding
Physical Exam
-
General - well developed, well nourished, no acute distress
Chest - clear bilaterally
Abdomen - soft, non-tender, positive bowel sounds, no CVAT, no incisional pain or distention
Genitalia - normal
Rectal - normal
Skin - warm & dry with no rash
Neuro - AOx3, no motor deficits
Extremities - no clubbing, no cyanosis, no edema
Incision - clean, dry
Dressing - clean, dry, intact
Counseling
-
moralez put am
Care Review
Data Reviewed
Discussed with: Family
[2023-07-22] MEDS: LOVENOX 40 MG SC (17:35)
[2023-07-22] MEDS: FLUSH (NSS) 2 FLUSH IV (20:15)
[2023-07-23] MEDS: ANTIVERT PO (01:14)
[2023-07-23] MEDS: LEVAQUIN 100 IV (03:13)
[2023-07-23 03:15] VITALS: BP 118/73
[2023-07-23] MEDS: FLAGYL 500 MG 100 IV ×2 (04:24→12:28)
[2023-07-23 07:10] VITALS: BP 116/67
[2023-07-23] MEDS: TORADOL 10 MG IV (07:42)
[2023-07-23] MEDS: ANTIVERT 25 MG PO (07:45)
[2023-07-23] MEDS: PROTONIX IV 40 MG IV (07:46)
[2023-07-23] MEDS: NSS (PRESERVATIVE FREE) 10 ML IV (07:47)
[2023-07-23] MEDS: PAXIL 10 MG PO (07:48)
[2023-07-23 07:57] LABS: % Eosinophils 0.1 % (0-6); % Immature Granulocytes 0.3 % (0-0.5); % Lymphocytes 9.4 % (20.5-51.1); % Monocytes 6.2 % (1.7-9.3); Absolute Lymphocytes 1.2 10^3/uL (1.2-3.4); Absolute Monocytes 0.8 10^3/uL (0.1-0.6); Absolute Neutrophils 10.9 10^3/uL (1.4-6.5); Hematocrit 36.3 % (39.0-52.0); Hemoglobin 12.3 g/dL (13.0-18.0); Mean Corp Hgb Conc. 33.9 g/dL (33.0-37.0); Mean Corpuscular Hgb 29.7 pg (27.0-31.0); Mean Corpuscular Volume 87.7 fL (80.0-94.0); Mean Platelet Volume 9.8 fL (7.4-10.4); Nucleated Red Blood Cells % 0 % (-); Platelet Count 176 10^3/uL (130-400); Red Blood Cell Count 4.14 10^6/uL (4.70-6.10); Red Cell Dist. Width 13.1 % (11.5-14.5)
[2023-07-23 08:58] LABS: ALT (SGPT) 127 U/L (0-50); AST (SGOT) 65 U/L (17-59); Albumin 2.7 g/dl (3.5-5.0); Alkaline Phosphatase 69 U/L (38-126); Blood Urea Nitrogen 22 mg/dl (9-20); Calcium 8.2 mg/dl (8.4-10.2); Carbon Dioxide 23 mmol/L (22-30); Chloride 107 mmol/L (98-107); Estimated Creatinine Clearance 62 ml/min; Glucose 137 mg/dl (70-99); Potassium 3.9 mmol/L (3.5-5.1); Sodium 134 mmol/L (135-145); Total Bilirubin 0.9 mg/dl (0.2-1.3); Total Protein 5.1 g/dl (6.3-8.2); eGFR > 60.00
--- NOTE | 2023-07-23 10:18 | W.PN.HOSP.TC ---
Today's Communication/Plan
-
Elevated white count likely reactive secondary to surgery
Defer to surgeon if he needs more antibiotics diabetic education dietary evaluation
Discharge planning if okay with surgeon also
LFTs and CBC in 1 week
Assessment / Plan
Assessment / Plan
77-year-old male with history of epigastric discomfort a few times in the past few months comes in because of more pain and nausea and vomiting
Cardiovascular system S1-S2 appreciated
Chest clear to auscultation
Abdomen soft and nontender
No pedal edema
CT-contracted gallbladder with stones 0.5 cm cystic duct. Cannot exclude gallbladder wall thickening pronation. No CBD dilatation mentioned. Small nonobstructing left renal calculi. Mild left ureteral dilatation
EKG sinus rhythm with PVCs right bundle branch block
#Acute Calculous Cholecystitis
Cystic Duct Stone
Status post laparoscopic cholecystectomy with cholangiogram 07/22/[address] Boss
Antibiotics can be stopped
Elevated LFTs likely secondary to cholecystectomy
White count is also likely reactive from the stress of surgery
#Hyperglycemia -HbA1C 7.1
Pt has diabetes
Diabetic education,Dietery eval
Patient made aware about hemoglobin A1c and diabetes
# Acute on chronic vertigo/dizziness.
-Patient is undergoing-balance training twice a week as outpatient
-Ordered Antivert and physical therapy for vestibular therapy
#Left Ureteral Dilation
- CT reports also incidentally notes dilated L ureter without evident obstruction, stricture
- No urinary symptoms / complaints.
- Renal function / labs / electrolytes are normal.
- Urinalysis not consistent with UTI
- Urology is not recommending any further interventions
-Remove Mcpherson and voiding trial
# History of atrial fibrillation with history of ablation in the past not on any anticoagulation follows up with Dr. Gavin Martin at [place]
#Anxiety / Depression
- Stable. Continue Paxil.
# Hyperlipidemia-hold simvastatin given elevated LFTs
#DVT Prophylaxis: Lovenox
#Code Status: Full
Discussed with nursing
Anticipated Discharge: Today
Subjective/Interval History
-
Date of Service: July 23, 2023
Objective Data
-
Labs:
Laboratory Results
07/23/23
07:02
WBC 13.0 H
Hgb 12.3 L
Hct 36.3 L
Plt Count 176
Sodium 134 L
Potassium 3.9
Chloride 107
Carbon Dioxide 23
BUN 22 H
Creatinine 0.9
Glucose 137 H
Calcium 8.2 L
Total Bilirubin 0.9
AST 65 H
ALT 127 H
Alkaline Phosphatase 69
Vital Signs:
Vital Signs
Temp Pulse Resp BP Pulse Ox
98.5 F 60 18 116/67 96
07/23/23 07:10 07/23/23 07:10 07/23/23 07:10 07/23/23 07:10 07/23/23 07:10
I&O
07/22/23 07/23/23 07/24/23
06:59 06:59 06:59
Intake Total 3300 / 3300 2735 / 2735
Output Total 1600 / 1600
Balance 3300 / 3300 1135 / 1135
[2023-07-23 11:11] LABS: Glucose - Point of Care 202 mg/dl (70-99)
--- NOTE | 2023-07-23 11:16 | W.PN.GS2 ---
Today's Communication / Plan
-
Dispo planning
Assessment / Plan
-
77 yo M who presented with abdominal pain found to have acute cholecystitis now POD #1 status post laparoscopic cholecystectomy with cholangiogram. Doing well, expected postoperative course.
Okay to DC home from a surgical standpoint today.
Recommend short course of p.o. antibiotics x 4 days
Patient to follow-up with me in 2 to 3 weeks.
Discharge instructions placed. All questions answered.
Time Spent
Total Time Spent with Patient (in minutes): 20
Subjective Data
-
Date of Service: July 23, 2023
Interval Events:
No acute events overnight. Slept well. Pain Controlled. Denies Nausea/Vomiting, +bowel function. Tolerating diet. Mcpherson removed.
Objective Data
-
Intake and Output
07/22/23 07/23/23 07/24/23
06:59 06:59 06:59
Intake Total 3300 / 3300 2735 / 2735
Output Total 1600 / 1600
Balance 3300 / 3300 1135 / 1135
Intake:
Oral fluids 1200 / 1200 960 / 960
IV fluids (Total) 1800 / 1800 1475 / 1475
normosol 200 / 200
IV piggybacks 300 / 300 300 / 300
Output:
Urine, Mcpherson 1600 / 1600
Other:
Number of approximated MODERATE 3
amounts of urine
Number of approximated LARGE 2
amounts of urine
Vital Signs
Temp Pulse Resp BP Pulse Ox
98.5 F 60 18 116/67 96
07/23/23 07:10 07/23/23 07:10 07/23/23 07:10 07/23/23 07:10 07/23/23 07:10
Lab Results
07/23/23 07:02
07/23/23 07:02
Calcium 8.2 mg/dl (8.4-10.2) L 07/23/23 07:02
Total Bilirubin 0.9 mg/dl (0.2-1.3) 07/23/23 07:02
Direct Bilirubin 0.1 mg/dl (0.0-0.4) 07/22/23 04:22
AST 65 U/L (17-59) H 07/23/23 07:02
ALT 127 U/L (0-50) H 07/23/23 07:02
Alkaline Phosphatase 69 U/L (38-126) 07/23/23 07:02
Total Protein 5.1 g/dl (6.3-8.2) L 07/23/23 07:02
Albumin 2.7 g/dl (3.5-5.0) L 07/23/23 07:02
Physical Exam
-
GENERAL/NEURO: Awake, Alert, no distress
CHEST: Unlabored breathing on RA
ABDOMEN: Soft, Non-Tender, Non-Distended, incisions clean dry and intact.
[2023-07-23 11:22] VITALS: BP 127/71
--- NOTE | 2023-07-23 12:02 | W.PN.URO.CBU ---
Today's Communication / Plan
-
no gu intervention
Assessment / Plan
-
incidetlelft hydto no obstuction ans asx bph routine post o moralez daing nehemiaswear urine will remove in am for voiding trial voiding well homne no moralez
Diagnosis
-
Date of Service: July 23, 2023
-
Patient Diagnosis:
Post Op Day:
Patient Diagnosis:
Post Op Day:
Patient Diagnosis:
Post Op Day:
Patient Diagnosis:asx incidenta;l finding left hydrouretral dilation with no tcc no stones prompt uptake excretuion iv contrast bph
Post Op Day:0 removal gall bladder laparocopica;;y with p[ost op moralez
Subjective
-
voising well moralez out
Objective
-
Vital Signs
Temp Pulse Resp BP Pulse Ox
98.5 F 81 18 127/71 97
07/23/23 11:22 07/23/23 11:22 07/23/23 11:22 07/23/23 11:22 07/23/23 11:22
Intake and Output
07/22/23 07/23/23 07/24/23
06:59 06:59 06:59
Intake Total 3300 / 3300 2735 / 2735
Output Total 1600 / 1600
Balance 3300 / 3300 1135 / 1135
Intake:
Oral fluids 1200 / 1200 960 / 960
IV fluids (Total) 1800 / 1800 1475 / 1475
normosol 200 / 200
IV piggybacks 300 / 300 300 / 300
Output:
Urine, Moralez 1600 / 1600
Other:
Number of approximated MODERATE 3
amounts of urine
Number of approximated LARGE 2
amounts of urine
Laboratory Results
07/23/23 07:02
07/23/23 07:02
Review of Systems
-
: No Symptoms
Physical Exam
-
General - well developed, well nourished, no acute distress
Chest - clear bilaterally
Abdomen - soft, non-tender, positive bowel sounds, no CVAT, no incisional pain or distention
Genitalia - normal
Rectal - normal
Skin - warm & dry with no rash
Neuro - AOx3, no motor deficits
Extremities - no clubbing, no cyanosis, no edema
Incision - clean, dry
Dressing - clean, dry, intact
[2023-07-23 14:31] VITALS: BP 118/76
--- NOTE | 2023-07-23 14:41 | W.DS.TRANS ---
Addendum entered and electronically signed by Daxa Blanton MD 07/24/23 08:42:
Dictation- [id number]
Original Note:
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
-
Discharge Instructions:
Sleep Apnea Risk Low
Discharge Diagnosis/Procedures Acute calculus cholecystitis, chronic vertigo,
left ureteral dilatation, history of atrial
fibrillation post ablation not on
anticoagulation, anxiety/depression,
hyperlipidemia, new diagnosis of diabetes
Diet Diabetic, Carb Controlled
Activity As tolerated
Driving Restrictions Follow postoperative orders
Bathing Restrictions OK to Shower
Blood Work CBC and CMP 1 week. Hemoglobin A1c in 3 months
Other Services PT
Instructions:
Stand-Alone Forms:
Changes to Home Medications: Yes
Discharge Medications:
DC Medications w/original date entered in [employer]
paroxetine HCl 10 mg tablet (Paxil) 10 mg PO DAILY Depression 07/20/23
simvastatin 20 mg tablet 20 mg PO DAILY High Cholesterol 07/20/23
acetaminophen 325 mg tablet 650 mg (2 x 325 mg) PO Q4HPRN PRN mild pain #1 tab 07/23/23
blood sugar diagnostic (Accu-Chek Guide test strips) #200 ea 07/23/23
blood-glucose meter (Accu-Chek Guide Glucose Meter) #1 ea 07/23/23
lancets (Accu-Chek Softclix Lancets) #200 ea 07/23/23
levofloxacin 500 mg tablet 500 mg PO DAILY Infection 4 days #4 tabs 07/23/23
meclizine 25 mg tablet 25 mg PO Q8H PRN vertigo #30 tabs 07/23/23
metronidazole 500 mg tablet 500 mg PO Q8H Infection #12 tabs 07/23/23
tramadol 50 mg tablet 50 mg PO Q6HPRN PRN severe pain/breakthrough pain #10 tabs 07/23/23
Home Medication Changes
blood sugar diagnostic (Accu-Chek Guide test strips) #200 ea 07/23/23
blood-glucose meter (Accu-Chek Guide Glucose Meter) #1 ea 07/23/23
lancets (Accu-Chek Softclix Lancets) #200 ea 07/23/23
levofloxacin 500 mg tablet 500 mg PO DAILY Infection 4 days #4 tabs 07/23/23
meclizine 25 mg tablet 25 mg PO Q8H PRN vertigo #30 tabs 07/23/23
metronidazole 500 mg tablet 500 mg PO Q8H Infection #12 tabs 07/23/23
tramadol 50 mg tablet 50 mg PO Q6HPRN PRN severe pain/breakthrough pain #10 tabs 07/23/23
Pending Results: Yes
Additional Pending Results:
path
[2023-07-23 14:48] VITALS: BP 118/76
--- NOTE | 2023-07-23 14:51 | CM ---
Patient has been medically cleared for discharge to home with no additional skilled services. Patient has arranged for transport home.
--- NOTE | 2023-07-23 15:20 | PN.DE ---
Diabetes Education
- -
Diabetes Education Consult
Met with Mr. Medrano and his at bedside for glucose monitor instructions. Current A1C 7.1%. Recalls being told he was 'borderline Diabetic'.
Discussed A1C and average blood sugar of 150, diabetes related short and mcfp complications, life style modification and self management at home.
Provided with Contour Next EZ glucometer, instructions with good return demonstration, result 178 mg/dl 2 hrs after lunch.
Discussed testing pattern and expected results and information marked in the take home booklet. Discussed and reviewed importance of reducing CHO intake, being active and checking BS to assess lifestyle effect on his BS. Encourage physical activity
and benefits with regards to glucose control.
Discussed OP DSME classes, requested if he can attend with his , was notified that program encourages spouses and SO to attend.
Will need RX for test strips and lancets for the Contour Next EZ, testing once/day at discharge.
Updates given to Pt's nurse.
== END 2023-07-23 15:46 | disposition home or self-care (01) | DRG 418 ==
LOC: 2 SOUTH 03:48
PROVIDERS: Emergency Medicine; Registered Nurse; Surgery; ADMITTING PHYSICIAN Hospitalist; ATTENDING PHYSICIAN Hospitalist; CONSULT PHYSICIAN Specialist; EMERGENCY PHYSICIAN Emergency Medicine; FAMILY PHYSICIAN Family Medicine; OTHER PHYSICIAN Surgery
PROC: 0FT44ZZ Resection of Gallbladder, Percutaneous Endoscopic Approach (ICD-10-PCS; 2023-07-22)
PROC: BF532Z0 Other Imaging of Gallbladder and Bile Ducts using Fluorescing Agent, Intraoperative (ICD-10-PCS; 2023-07-22)
DX: K80.00 Calculus of gallbladder with acute cholecystitis without obstruction (principal); N13.30 Unspecified hydronephrosis; F41.9 Anxiety disorder, unspecified; F32.A Depression, unspecified; E78.00 Pure hypercholesterolemia, unspecified; N28.82 Megaloureter; E11.9 Type 2 diabetes mellitus without complications; I48.0 Paroxysmal atrial fibrillation; N40.0 Benign prostatic hyperplasia without lower urinary tract symptoms
CPT/HCPCS: 88304; 74177; 74300; 76000; 80048; 80053; 80076; 81003; 81015; 82248; 82962; 83036; 83690; 85025; 85027; 88341; 88342; 93005; 96361; 96365; 96367; 96375; 96376; 97161; 99285; A4300; Q9967